=== PATIENT | female | born 1950 | race Caucasian/White ===

== ENCOUNTER → 2022-07-08 | Outpatient (CLI) | payer MEDICARE, OTHER ==
[2022-07-08 18:02] LABS: THYROID STIMULATING HORMONE 0.165 uIU/ML (0.55-4.78)
[2022-07-08 18:03] LABS: FREE T4 1.53 NG/DL (0.89-1.76)
== END ==
LOC: M WUC 13:04
DX: E03.9 Hypothyroidism, unspecified (principal)